=== PATIENT | female | born 1975 | race Caucasian/White ===

== ENCOUNTER 2018-01-24 23:42 | Emergency (ER) | payer OTHER ==
[~2018-01-24] VITALS: Ht 157.5 cm; Wt 49.9 kg
[2018-01-24 23:53] VITALS: BP 94/78
--- NOTE | 2018-01-24 23:56 | NUR ---
PT TO ER BED 2.
--- NOTE | 2018-01-25 00:10 | NUR ---
42/F CAME IN ED, C/O 5/10 CRAMPING MID ABD PAIN, RADIATING TO BACK, X6 DAYS. PT REPORTS NAUSEA, REPORTS 1X VOMITING EPISODE 6 DAYS AGO. DENIES FEVER, DIARRHEA. AOX4, AMBULATORY, RR EVEN AND UNLABORED. LUNG SOUNDS CLEAR BL. ABD SOFT ROUND SLIGHTLY TENDER ON MID ABD. PT DENIES MED HX, RX. ER MD AT BEDSIDE TO EVALUATE PT.
[2018-01-25] MEDS ORDERED: ONDANSETRON 4 MG ODT PO ONE (00:15)
--- NOTE | 2018-01-25 00:18 | NUR ---
PT TAKEN TO CT AT THIS TIME
[2018-01-25 00:42] LABS: APPEARANCE,URINE HAZY (CLEAR); BILIRUBIN,URINE NEGATIVE (NEGATIVE); BLOOD, URINE 1+ (NEGATIVE); COLOR,URINE YELLOW (YELLOW); LEUKOCYTE ESTERASE ,URINE NEGATIVE (NEGATIVE); NITRITE, URINE NEGATIVE (NEGATIVE); UGLUCOSE NEGATIVE (NEGATIVE)
[2018-01-25 00:53] LABS: RBC,URINE 0-5 (RARE) /HPF (0-5); WBC,URINE 0-5 (RARE) /HPF (0-5)
[2018-01-25 01:04] VITALS: BP 100/60
== END 2018-01-25 01:04 | disposition home or self-care (01) ==
LOC: MED 23:42
DX: K59.00 Constipation, unspecified (principal); Z88.6 Allergy status to analgesic agent
CPT/HCPCS: 74176; 81001; 81025; 87086; 99285; S0119